=== PATIENT | female | born 1970 | race African-American/Black ===

== ENCOUNTER 2017-09-23 01:17 | Emergency (ER) | payer MEDICAID ==
[~2017-09-23] VITALS: Ht 157.5 cm; Wt 56.0 kg
[2017-09-23] MEDS ORDERED: KETOROLAC 60MG/2ML VIAL IM ONE (05:45)
[2017-09-23] MEDS ORDERED: BACITRACIN ZINC OINT UDPKT TOP ONE (05:45)
[2017-09-23] MEDS ORDERED: TETANUS, DIPHTHERIA, PERTUSSIS VAC/PF 0.5ML (>7YR OLD) IM ONE (05:45)
[2017-09-23] MEDS ORDERED: LIDOCAINE HCL 1% 20ML VIAL (Pyxis) INJ MC ONE (05:45)
[2017-09-23] MEDS ORDERED: LIDOCAINE HCL/PF 1% 10 MG/ML 5ML VIAL IJ SCH ×2 (08:00→10:00)
[2017-09-23] MEDS ORDERED: LIDOCAINE HCL/EPINEPHRINE 1%-EPI 1:100,000 30 ML VIAL INFIL ONE (09:00)
[2017-09-23] MEDS ORDERED: LIDOCAINE HCL 1% 20ML VIAL (Pyxis) INJ INFIL ONE ×2 (09:00)
[2017-09-23 10:55] VITALS: BP 123/82
== END 2017-09-23 11:05 | disposition home or self-care (01) ==
LOC: ER 01:17
DX: S01.81XA Laceration without foreign body of other part of head, initial encounter (principal); F12.10 Cannabis abuse, uncomplicated; Y08.89XA Assault by other specified means, initial encounter; Y93.89 Activity, other specified; Y92.89 Other specified places as the place of occurrence of the external cause; Y99.8 Other external cause status
CPT/HCPCS: 12015; 70450; 70486; 90471; 90715; 96372; 99284; J1885; J3490

== ENCOUNTER 2017-09-30 21:12 | Emergency (ER) | payer MEDICAID ==
[~2017-09-30] VITALS: Ht 157.5 cm; Wt 56.0 kg
[2017-09-30 22:22] VITALS: BP 121/69
== END 2017-09-30 22:27 | disposition home or self-care (01) ==
LOC: ER 21:12
DX: S01.81XD Laceration without foreign body of other part of head, subsequent encounter (principal); F12.10 Cannabis abuse, uncomplicated; Y08.89XD Assault by other specified means, subsequent encounter
CPT/HCPCS: 99281; Z7610

== ENCOUNTER 2019-04-23 16:23 | Emergency (ER) | payer SELFPAY ==
[~2019-04-23] VITALS: Ht 157.5 cm; Wt 50.0 kg
[2019-04-23] MEDS ORDERED: KETOROLAC 30MG/ML VIAL IM ONE (20:00)
[2019-04-23] MEDS ORDERED: MORPHINE SULFATE 10 MG/ML CPJ IM ONE (20:00)
[2019-04-23] MEDS ORDERED: DIAZEPAM 5 MG TABLET PO ONE (20:00)
[2019-04-23 20:21] LABS: HCG SCREEN NEGATIVE
[2019-04-23 20:25] LABS: BASOPHILS % 0.9 % (0.0-2.0); CHLORIDE 108 mEq/L (98-107); EOSINOPHILS % 2.7 % (0.0-5.0); HEMATOCRIT. 37.5 % (36.0-48.0); HEMOGLOBIN. 12.4 g/dL (12.0-16.0); LYMPHOCYTES % 25.1 % (20.0-50.0); MEAN CORPUSCULAR HEMOGLOBIN 29.7 pg (28.0-32.0); MONOCYTES % 5.5 % (2.0-8.0); NEUTROPHILS % 65.8 % (40.0-76.0); PLATELET 339 x1000/uL (130-400); RED BLOOD CELL COUNT 4.17 mill/uL (4.2-5.4); RED CELL DISTRIBUTION WIDTH 13.9 % (11.6-14.6)
[2019-04-23 20:35] LABS: CREATINE KINASE 118 IU/L (26-192)
[2019-04-23 20:38] LABS: CREATINE KINASE MB FRACTION < 1.0 ng/mL (0.5-3.6)
[2019-04-24] VITALS: BP 161/82
[2019-04-24] MEDS ORDERED: HYDROCODONE/APAP 7.5/325MG 1 TAB TABLET PO ONE
== END 2019-04-24 00:20 | disposition home or self-care (01) ==
LOC: ER 16:23
DX: M62.838 Other muscle spasm (principal); M54.12 Radiculopathy, cervical region; M19.90 Unspecified osteoarthritis, unspecified site; F12.10 Cannabis abuse, uncomplicated
CPT/HCPCS: 36415; 70450; 71045; 80053; 82550; 82553; 83690; 83880; 84443; 84484; 84703; 85025; 85379; 85651; 93005; 96372; 99284; J1885; J2270; Z7610